=== PATIENT | female | born 1990 | race African-American/Black ===

== ENCOUNTER 2019-08-04 10:21 | Emergency (ER) | payer OTHER ==
[2019-08-04 10:49] VITALS: BP 117/73
[2019-08-04] MEDS ORDERED: IBUPROFEN 600 MG TABLET PO ONE (11:05)
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
== END 2019-08-04 11:15 | disposition home or self-care (01) ==
LOC: ER 10:21
DX: M54.5 Low back pain (principal); M54.2 Cervicalgia; M25.511 Pain in right shoulder; M25.512 Pain in left shoulder; V44.5XXA Car driver injured in collision with heavy transport vehicle or bus in traffic accident, initial encounter; F17.200 Nicotine dependence, unspecified, uncomplicated
CPT/HCPCS: 99283